=== PATIENT | male | born 1985 | race Caucasian/White ===

== ENCOUNTER 2020-12-07 03:46 | Emergency (ER) | payer OTHER, SELFPAY ==
[2020-12-07 03:47] VITALS: BP 171/108; PULSE 99; RESP 18; TEMP 36.6; O2SAT 99; BMI 36.4
--- NOTE | 2020-12-07 04:14 | CT_ITS ---
STUDY: CT ABDOMEN AND PELVIS WITH CONTRAST REASON FOR EXAM: Male, 35 years old. abdominal pain -- IV PO Contrast RADIATION DOSAGE (If Supplied By Facility): CTDIvol = ( 18.61 ) mGy, DLP = ( 1437.56 ) mGycm TECHNIQUE: Transaxial images were obtained from the dome of the diaphragm to the symphysis pubis with oral contrast. Oral and amp; IV Gastrografin and amp; 100mL Isovue-300 was administered. Sagittal and coronal images were reconstructed. Individualized dose optimization techniques were used for this CT. COMPARISON: None. FINDINGS: The visualized lung bases are unremarkable. The visualized portions of the heart are within normal limits. Normal liver. Normal gallbladder and extrahepatic biliary system. Normal spleen. Normal pancreas. Normal bilateral adrenal glands. There is a tiny 3 mm calculus at the right ureterovesicular junction with mild upstream hydroureter. No hydronephrosis. There is several subcentimeter nonobstructive left renal calculi. Normal visualized stomach. Normal small intestine. Normal colon. The appendix is visualized and appears normal. Oral contrast has reached the terminal ileum. Normal abdominal aorta. Normal inferior vena cava. Normal retroperitoneum. Normal urinary bladder. Normal abdominal wall. There is degenerative disc changes at L4-L5. CT/Abdomen/Pelvis WITH Contrast IMPRESSION: 3 mm calculus at the right ureterovesicular junction with mild upstream hydroureter. Electronically Signed: Saran Hunter MD at 7:17 EDT Tel , Service support ,
--- NOTE | 2020-12-07 04:20 | ED.VIS.GEN ---
History of Present Illness Chief Complaint: Abd Pain Informant: Patient Narrative: 35-year-old male presenting to the emergency department with approximately 2 hours of abdominal pain. He states that he was sleeping at about 0200 hrs. he woke with pain in the right side of his abdomen. States he feels it slightly into his flank. He has never had this problem before. He states that it started to subside on the way to the emergency department but it is still present. No nausea vomiting. No history of gallstones. Has never had abdominal surgery. No history of kidney stones. He states that earlier in the night he felt fine. He ate casserole for dinner without any issues. Past Medical History - Allergies and Home Meds Allergies/Adverse Reactions: Allergies No Known Allergies Allergy (Verified 12/07/20 04:19) Primary Care Physician: NOT,DEFINED [NON-STAFF] - Past Medical History: None Surgical History: no surgical history Smoking Status: Never smoker Drugs: None Review of Systems General: Denies: Chills, Fever, Sweats Eyes: Denies: Visual changes - bilaterally, Diplopia ENT: Denies: Rhinorrhea, Sore throat Cardiovascular: Denies: Chest pain, Palpitations Respiratory: Denies: Dyspnea, Cough, Dyspnea on exertion Gastrointestinal: Reports: Abdominal pain. Denies: Nausea, Vomiting, Diarrhea, Melena, Hematochezia Genitourinary: Denies: Dysuria, Hematuria, Frequency Musculoskeletal: Denies: Back pain, Extremity Pain Skin: Denies: Rash, Wounds Neurological: Denies: Headache, Weakness, Numbness Physical Exam Vital Signs/Narrative: Vital Signs Temp Pulse Resp BP Pulse Ox 12/07/20 03:47 97.8 F 99 18 171/108 H 99 Inital Vital Signs reviewed: Yes General: Well nourished, Well developed, No Acute Distress Head: Normocephalic, Atraumatic Eyes: Perrl, EOMI ENT: Moist mucous membranes, No rhinorrhea Neck: Supple, Nontender Cardiovascular: Regular rate, Regular rhythm, No murmurs Respiratory: No distress, CTA bilaterally, Chest nontender Abdomen: Soft, Nondistended, Normal bowel sounds, Tender - Tenderness to palpation in the right middle quadrant. Negative for: Guarding Back: Nontender, Normal Inspection Extremities: Nontender, No edema Skin: Normal color, No rash Neurological: Alert, Oriented x3, Cranial nerves II-XII grossly intact, Normal Strength, Normal Sensation Psychological: Normal affect, Normal Mood Diagnostic/Tx/Re-eval Clinical Impression(s) from Imaging Studies Abdomen/Pelvis CT 12/07/20 04:14 IMPRESSION: 3 mm calculus at the right ureterovesicular junction with mild upstream hydroureter. Electronically Signed: Saran Hunter MD at 7:17 EDT Tel , Service support , Laboratory Last Values WBC 10.3 K/mm3 (4.4-11.0) 12/07/20 03:50 RBC 5.30 M/mm3 (4.6-6.2) 12/07/20 03:50 Hgb 16.4 g/dL (13.0-16.5) 12/07/20 03:50 Hct 47.3 % (40-54) 12/07/20 03:50 MCV 89.2 fL (80-94) 12/07/20 03:50 MCH 30.9 pg (27.0-32.0) 12/07/20 03:50 MCHC 34.7 g/dL (32-36) 12/07/20 03:50 RDW Std Deviation 40.4 fl (35.1-43.9) 12/07/20 03:50 RDW Coeff of Prisca 12.4 % (11.6-14.6) 12/07/20 03:50 Plt Count 361 K/mm3 (150-450) 12/07/20 03:50 MPV 9.7 fl (6.2-12.0) 12/07/20 03:50 Immature Gran % (Auto) 0.200 % (0.0-0.9) 12/07/20 03:50 Neut % (Auto) 55.9 % (47-70) 12/07/20 03:50 Lymph % (Auto) 30.5 % (19-41) 12/07/20 03:50 [place] % (Auto) 8.9 % (0-10) 12/07/20 03:50 Eos % (Auto) 3.8 % (0-5) 12/07/20 03:50 Baso % (Auto) 0.7 % (0-1) 12/07/20 03:50 Absolute Neuts (auto) 5.7 X10^3/uL (2.0-7.7) 12/07/20 03:50 Absolute Lymphs (auto) 3.14 X10^3/uL (0.83-4.51) 12/07/20 03:50 Nucleated RBC % 0 % (0-5) 12/07/20 03:50 Sodium 141 mmol/L (136-145) 12/07/20 03:50 Potassium 3.6 mmol/L (3.5-5.1) 12/07/20 03:50 Chloride 107 mmol/L (98-107) 12/07/20 03:50 Carbon Dioxide 27.0 mmol/L (21.0-32.0) 12/07/20 03:50 Anion Gap 7 (5-15) 12/07/20 03:50 BUN 17 mg/dL (7-18) 12/07/20 03:50 Creatinine 1.18 mg/dL (0.70-1.30) 12/07/20 03:50 Estim Creat Clear Calc 110.81 ml/min 12/07/20 03:50 Est GFR (MDRD) Af Amer 89 mL/min (>60) 12/07/20 03:50 Est GFR (MDRD) Non-Af 74 mL/min (>60) 12/07/20 03:50 BUN/Creatinine Ratio 14.4 RATIO (10-20) 12/07/20 03:50 Glucose 117 mg/dL (74-106) H 12/07/20 03:50 Calcium 9.0 mg/dL (8.5-10.1) 12/07/20 03:50 Total Bilirubin 0.20 mg/dL (0.20-1.00) 12/07/20 03:50 AST 19 U/L (15-37) 12/07/20 03:50 ALT 40 U/L (16-61) 12/07/20 03:50 Alkaline Phosphatase 81 U/L (45-117) 12/07/20 03:50 Total Protein 8.2 g/dL (6.4-8.2) 12/07/20 03:50 Albumin 3.8 g/dL (3.2-5.0) 12/07/20 03:50 Globulin 4.4 g/dL (2.2-4.2) H 12/07/20 03:50 Albumin/Globulin Ratio 0.9 RATIO (0.9-2.4) 12/07/20 03:50 Lipase 146 U/L (73-393) 12/07/20 03:50 Urine Color Yellow (Yellow) 12/07/20 04:00 Urine Clarity Clear (Clear) 12/07/20 04:00 Urine pH 5.0 (5.0 - 8.0) 12/07/20 04:00 Ur Specific [place] 1.025 (1.002-1.030) 12/07/20 04:00 Urine Protein 15 mg/dl (Negative) H 12/07/20 04:00 Urine Glucose (UA) Normal mg/dl (Normal) 12/07/20 04:00 Urine Ketones Negative mg/dl (Negative) 12/07/20 04:00 Urine Occult Blood 250 /ul (Negative) H 12/07/20 04:00 Urine Nitrite Negative (Negative) 12/07/20 04:00 Urine Bilirubin Negative mg/dL (Negative) 12/07/20 04:00 Urine Urobilinogen Normal mg/dl (Normal) 12/07/20 04:00 Ur Leukocyte Esterase Negative /ul (Negative) 12/07/20 04:00 Urine RBC 10-25 SEEN /hpf (0-5) 12/07/20 04:00 Urine WBC 0 SEEN /hpf (0-5) 12/07/20 04:00 Ur Squamous Epith Cells 0 SEEN /hpf (0-5) 12/07/20 04:00 Urine Bacteria 0 SEEN /hpf (None Seen) 12/07/20 04:00 Urine Mucus 0 SEEN /hpf (<or=2+) 12/07/20 04:00 - Medical Decision Making Patient's urine has some microscopic blood. White count normal creatinine normal. CT demonstrates a distal 3 mm ureteral stone. The patient's pain returned and received Toradol. At this point patient will be discharged home given urologic follow-up as well as prescriptions for Percocet and Zofran return if worsening or concerns ED Disposition - Plan for ED Patient: Disposition: Home or Assisted Living Diagnosis: Right ureteral calculus, Renal colic on right side Instructions: ED Kidney Stone w/ Colic Prescriptions: Oxycodone HCl/Acetaminophen [Percocet 5/325] 1 tablet PO Q6H PRN PRN 3 Days #12 tab PRN Reason: Pain Prescription Printed Ondansetron [Zofran Odt] 4 mg PO Q6H PRN PRN #10 tablet PRN Reason: Nausea Prescription Printed Referrals: Hugh Muse MD [STAFF PHYSICIAN] - (For urology if you wish to follow-up with them)
[2020-12-07 04:21] LABS: Bacteria 0 SEEN /hpf (None Seen); Mucous, Urine 0 SEEN /hpf (<or=2+); Squamous Epithelial Cells - UA 0 SEEN /hpf (0-5); White Blood Cells 0 SEEN /hpf (0-5)
[2020-12-07 04:22] LABS: Absolute Lymphocyte Count 3.14 X10^3/uL (0.83-4.51); Absolute Neutrophil Count 5.7 X10^3/uL (2.0-7.7); Basophil# 0.07 X10^3/uL; Basophil% 0.7 % (0-1); Eosinophil# 0.39 X10^3/uL; Eosinophils% 3.8 % (0-5); Hematocrit 47.3 % (40-54); Hemoglobin 16.4 g/dL (13.0-16.5); Lymphocyte # 3.14 X10^3/ul (4.0); Lymphocyte % 30.5 % (19-41); Mean Corp Hgb Conc 34.7 g/dL (32-36); Mean Corpuscular Hgb 30.9 pg (27.0-32.0); Mean Corpuscular Volume 89.2 fL (80-94); Mean Platelet Vol. 9.7 fl (6.2-12.0); Monocyte# 0.92 X10^3/uL; Monocyte% 8.9 % (0-10); NRBC Flagged by Analyzer 0 % (0-5); Neutrophil # 5.74 X10^3/uL (2.7-7.7); Neutrophil % 55.9 % (47-70); Platelet Count 361 K/mm3 (150-450); RBC Distribution Width CV 12.4 % (11.6-14.6); RBC Distribution Width SD 40.4 fl (35.1-43.9); White Blood Count 10.3 K/mm3 (4.4-11.0)
[2020-12-07 04:23] LABS: Color, Urine Yellow (Yellow); Glucose, Dipstick Normal (Normal); Ketone-Dipstick Negative (Negative); Leukocyte Esterase-Dipstick Negative /ul (Negative); Nitrite-Dipstick Negative (Negative); Occult Blood-Urine 250 /ul (Negative); Protein-Dipstick 15 mg/dl (Negative); Specific Gravity, Urine 1.025 (1.002-1.030); Urine Bilirubin Dipstick Negative (Negative); Urine Clarity Clear (Clear); Urine Urobilinogen Normal (Normal)
[2020-12-07 04:29] LABS: Red Blood Cells-Urine 10-25 SEEN /hpf (0-5)
[2020-12-07 04:33] LABS: ALB/GLOB Ratio 0.9 RATIO (0.9-2.4); AST(SGOT) 19 U/L (15-37); Alanine Aminotransfer ALT/SGPT 40 U/L (16-61); Albumin, Serum 3.8 g/dL (3.2-5.0); Alkaline Phosphatase 81 U/L (45-117); Anion Gap 7 (5-15); BUN 17 mg/dL (7-18); BUN/Creat Ratio 14.4 RATIO (10-20); Chloride 107 mmol/L (98-107); Creatinine, Serum 1.18 mg/dL (0.70-1.30); EST Glomerular Filtration Rate 74 mL/min (>60); Est Glom Filt Rate - Afr Amer 89 mL/min (>60); Estimated Creatinine Clearance 110.81 ml/min; Globulin 4.4 g/dL (2.2-4.2); Glucose 117 mg/dL (74-106); Lipase 146 U/L (73-393); Potassium 3.6 mmol/L (3.5-5.1); Protein, Total 8.2 g/dL (6.4-8.2); Sodium Level 141 mmol/L (136-145)
[2020-12-07] MEDS: Ketorolac 30 MG/ML Syringe IV (06:36)
[2020-12-07 06:37] VITALS: BP 170/90; PULSE 87; RESP 16; O2SAT 97
[2020-12-07 07:30] VITALS: BP 175/89; PULSE 86; RESP 18; O2SAT 96
== END 2020-12-07 07:32 | disposition home or self-care (01) ==
PROVIDERS: Emergency Provider Emergency Medicine; PCP Family Medicine
DX: N20.1 Calculus of ureter (principal)
CPT/HCPCS: 74177; 80053; 81001; 83690; 85025; 96374; 99283; Q9967; A4216

== ENCOUNTER 2021-09-20 16:43 | Outpatient (CLI) | payer OTHER, SELFPAY | END 2021-09-20 23:59 | disposition short-term general hospital (02) | PROVIDERS: PCP Family Medicine; Visit Provider Family Medicine | DX: Z20.822 Contact with and (suspected) exposure to COVID-19 (principal) | CPT/HCPCS: 87635; U0003; U0005 ==

== ENCOUNTER → 2023-06-20 | Outpatient (CLI) | payer OTHER, SELFPAY ==
[2023-06-20 13:21] LABS: Anion Gap 6 (5-15); BUN 13 mg/dL (7-18); BUN/Creat Ratio 13.6 RATIO (10-20); Calcium,Total 9.2 mg/dL (8.5-10.1); Chloride 106 mmol/L (98-107); Cholesterol 162 mg/dL (200); Creatinine, Serum 0.96 mg/dL (0.70-1.30); EST Glomerular Filtration Rate 93 mL/min (>60); Est Glom Filt Rate - Afr Amer 112 mL/min (>60); Glucose 100 mg/dL (74-106); High Density Lipoprotein 35 mg/dL; Potassium 3.7 mmol/L (3.5-5.1); Sodium Level 138 mmol/L (136-145); Triglycerides 225 mg/dL; Very Low Density Lipoprotein 45 mg/dL (5-40)
== END | disposition home or self-care (01) ==
LOC: MFPLAB 09:48
PROVIDERS: PCP Family Medicine; Visit Provider Family Medicine
DX: R73.01 Impaired fasting glucose (principal); I10 Essential (primary) hypertension
CPT/HCPCS: 36415; 80048; 80061

== ENCOUNTER → 2024-06-25 | Outpatient (CLI) | payer OTHER, SELFPAY ==
[2024-06-25 15:54] LABS: AST(SGOT) 19 U/L (15-37); Alanine Aminotransfer ALT/SGPT 37 U/L (16-61); Alkaline Phosphatase 79 U/L (45-117); Anion Gap 5 (5-15); BUN 18 mg/dL (7-18); BUN/Creat Ratio 16.5 RATIO (10-20); Calcium,Total 9.6 mg/dL (8.5-10.1); Chloride 108 mmol/L (98-107); Creatinine, Serum 1.09 mg/dL (0.70-1.30); EST Glomerular Filtration Rate 79 mL/min (>60); Est Glom Filt Rate - Afr Amer 96 mL/min (>60); Globulin 4.1 g/dL (2.2-4.2); Glucose 88 mg/dL (74-106); Potassium 4.1 mmol/L (3.5-5.1); Protein, Total 8.1 g/dL (6.4-8.2); Sodium Level 138 mmol/L (136-145)
== END | disposition home or self-care (01) ==
PROVIDERS: PCP Family Medicine; Referring Provider Family Medicine; Visit Provider Family Medicine
DX: I10 Essential (primary) hypertension (principal)
CPT/HCPCS: 36415; 80053

== ENCOUNTER 2025-01-25 11:22 | Emergency (ER) | payer OTHER, SELFPAY ==
[2025-01-25] VITALS (12 sets, daily range): BP systolic 109–183; BP diastolic 47–132; PULSE 61–96; RESP 14–18; TEMP 36.1–36.6; O2SAT 97–100; BMI 34.9
--- NOTE | 2025-01-25 11:39 | EKG12_ITS ---
Test Reason : PALPITATIONS Blood Pressure : */* mmHG Vent. Rate : 102 BPM Atrial Rate : 102 BPM P-R Int : 152 ms QRS Dur : 92 ms QT Int : 328 ms P-R-T Axes : -12 47 19 degrees QTcB Int : 427 ms Sinus tachycardia Otherwise normal ECG Confirmed by Thee Sevilla ([id number]), publication editor DANIELLE JJ ([id number]) on 01/27/2025 10:53:02 AM Referred By: JON/RAMONA Confirmed By: Thee Sevilla
--- NOTE | 2025-01-25 11:40 | RAD_ITS ---
EXAM: XR Chest, 2 Views CLINICAL INDICATION: PALPITATIONS TECHNIQUE: Frontal and lateral views of the chest. COMPARISON: No relevant prior studies available. FINDINGS: LUNGS AND PLEURAL SPACES: Unremarkable. No consolidation. No pneumothorax. HEART: Unremarkable. No cardiomegaly. MEDIASTINUM: Unremarkable. Normal mediastinal contour. BONES/JOINTS: Unremarkable. No acute fracture. RAD/Chest PA and Lateral IMPRESSION: No acute cardiopulmonary process. Reading Location: [id number]
[2025-01-25] MEDS: 0.9% Normal Saline (1000mL) 1,000 ML 999 ML IV (11:54)
[2025-01-25 12:03] LABS: Absolute Lymphocyte Count 2.01 X10^3/uL (0.83-4.51); Basophil# 0.09 X10^3/uL; Eosinophil# 0.46 X10^3/uL; Eosinophils% 4.9 % (0-5); Hematocrit 47.8 % (40-54); Hemoglobin 16.5 g/dL (13.0-16.5); Lymphocyte # 2.01 X10^3/ul (0.83-4.51); Lymphocyte % 21.6 % (19-41); Mean Corp Hgb Conc 34.5 g/dL (32-36); Mean Corpuscular Volume 86.9 fL (80-94); Mean Platelet Vol. 9.6 fl (6.2-12.0); Monocyte# 0.68 X10^3/uL; Monocyte% 7.3 % (0-10); NRBC Flagged by Analyzer 0 % (0-5); Neutrophil # 6.03 X10^3/uL (2.7-7.7); Neutrophil % 64.8 % (47-70); Platelet Count 323 K/mm3 (150-450); RBC Distribution Width CV 12.6 % (11.6-14.6); RBC Distribution Width SD 39.8 fl (35.1-43.9); White Blood Count 9.3 K/mm3 (4.4-11.0)
--- NOTE | 2025-01-25 12:04 | EDS_ITS ---
HPI History of Present Illness Chief Complaint: Palpitations Narrative Narrative: Chief complaint and HPI: Palpitations. 39-year-old male with past medical history of HTN presents for evaluation of palpitations. Patient states that he drinks energy drinks every morning. He states while he was drinking this energy drink he developed palpitations. States he did not finish the drink. Endorses a quick episode of lightheadedness with the palpitations that is since resolved. Denies any fever, chills, shortness of breath, chest pain abdominal pain, nausea, vomiting, diarrhea. Denies any bilateral lower extremity pain or swelling. Denies any recent travel or surgery. Review of systems: See HPI Medications: As listed on the chart Allergies: As listed on the chart PFSH: Per chart Vital signs: As listed on the chart. Reviewed. Physical exam: Gen: A&O x3, NAD Head: Normocephalic, atraumatic Eyes: No sclera icterus, conjunctiva clear ENT: Moist mucous membranes Neck: Trachea midline, No JVD CV: Tachycardic, regular rhythm, no murmurs, no peripheral edema Resp: Lungs CTA BL, no w/r/c GI: Abd soft, non-distended, non-tender, no r/r/g Musc: Full ROM, no deformity Skin: Warm, dry Neuro: Alert, oriented, grossly intact, sensation intact Psych: Cooperative, appropriate mood and affect [facility] Medical History (Updated 01/25/25 @ 14:[address] Jermaine Rodney, DO) COVID-19 Dislocated shoulder Hx of renal calculi HTN (hypertension) Home Medications ?Medication ?Instructions ?Recorded ?Last Taken ?Type loratadine 10 mg tablet (Claritin) 10 mg PO DAILY 08/2901/25/25 History lisinopril 20 mg tablet 20 mg PO DAILY 01/25/2512/28 History Allergy/AdvReac Type Severity Reaction Status Date / Time Penicillins Allergy unknown Verified 01/25/25 11:23 Family History (Updated 09/24/21 @ 10:17 by Cori Rosen) Father CVA (cerebral vascular accident) Social History Smoking Status: Never smoker EXAM Physical Exam Const Vital Signs: 01/25/25 11:23 01/25/25 12:00 01/25/25 12:15 Temperature 97.0 F L Temperature Source Oral Pulse Rate 77 90 Respiratory Rate 16 16 Blood Pressure 183/132 H 126/96 H 116/104 H Blood Pressure Mean 149 107 110 Pulse Ox 99 97 Oxygen Delivery Method Room Air 01/25/25 12:22 01/25/25 12:30 01/25/25 12:45 Temperature Temperature Source Pulse Rate 81 87 79 Respiratory Rate 18 14 15 Blood Pressure 116/80 109/73 116/80 Blood Pressure Mean 92 82 90 Pulse Ox 99 97 98 Oxygen Delivery Method Room Air 01/25/25 13:00 01/25/25 13:15 01/25/25 13:30 Temperature Temperature Source Pulse Rate 82 96 86 Respiratory Rate 17 15 17 Blood Pressure 120/73 111/47 L 112/82 H Blood Pressure Mean 86 58 92 Pulse Ox 97 99 100 Oxygen Delivery Method 01/25/25 13:45 01/25/25 14:00 Temperature Temperature Source Pulse Rate 79 Respiratory Rate 17 Blood Pressure 119/69 Blood Pressure Mean 85 Pulse Ox 99 Oxygen Delivery Method MDM MDM MDM Narrative Medical decision making narrative: 39-year-old male with past medical history of HTN presents for evaluation of palpitations. Differential diagnosis includes but is not limited to arrhythmia, anemia, electrolyte abnormality, thyroid disease, suspect less likely ACS or PE. On presentation patient is in sinus tachycardia however on the monitor he occasionally throws PACs. This is not seen on EKG. NS bolus ordered. Palpitations workup ordered. EKG reviewed see below. CBC without leukocytosis or anemia. BMP without significant electrolyte abnormality or NIKOLE. Does show mild dehydration. D-dimer unremarkable. Magnesium mildly elevated at 2.3. BMP unremarkable. TSH unremarkable. Troponin unremarkable x 2. Low risk for ACS per heart score as well as patient denied true chest pain. On reevaluation, patient is asymptomatic. He is no longer throwing PACs on the monitor. Symptoms may be secondary to intermittent PACs versus mild dehydration and energy drink use. Recommend keeping up with fluid intake. Recommend refraining from energy drinks. Follow-up with PCP. Return precautions explained. Patient understands plan. Patient stable to discharge home EKG: Interpreted by me/EM physician: EKG shows sinus tachycardia without any acute ischemic changes. Heart rate 102 Diagnostic: Interpreted by me/EM physician: Chest x-ray without pneumonia, effusion, cardiomegaly, pneumothorax. Radiology in agreement. Impression: 1. Palpitations, resolved 2. Mild dehydration Lab Data Labs: Laboratory Results - last 24 hr 01/25/25 01/25/25 11:50 13:55 WBC 9.3 RBC 5.50 Hgb 16.5 Hct 47.8 MCV 86.9 MCH 30.0 MCHC 34.5 RDW Std Deviation 39.8 RDW Coeff of Prisca 12.6 Plt Count 323 MPV 9.6 Immature Gran % (Auto) 0.400 Neut % (Auto) 64.8 Lymph % (Auto) 21.6 [place] % (Auto) 7.3 Eos % (Auto) 4.9 Baso % (Auto) 1.0 Absolute Neuts (auto) 6.0 Absolute Lymphs (auto) 2.01 Nucleated RBC % 0 D-Dimer Quant (PE/DVT) 0.38 Sodium 138 Potassium 3.7 Chloride 104 Carbon Dioxide 20.1 L Anion Gap 14 BUN 31 H Creatinine 1.16 Estim Creat Clear Calc 129.95 Est GFR (MDRD) Non-Af 81 BUN/Creatinine Ratio 26.7 H Glucose 107 H Calcium 10.0 Magnesium 2.3 H Troponin T High Sens 10 Troponin T Hi Sens 2 Hr 6 NT pro BNP II < 36 TSH 1.720 Radiography Diagnostic Testing: Clinical Impression(s) from Imaging Studies Chest X-Ray 01/25/25 11:40 IMPRESSION: No acute cardiopulmonary process. Reading Location: [facility] Discharge Plan Triage Chief Complaint: Palpitations ED Provider: Jermaine Rodney Dx/Rx/DC Orders Clinical Impression: Palpitations Instructions: ED Palpitations Prescriptions: No Action loratadine [Claritin] 10 mg tablet 10 mg PO DAILY lisinopril 20 mg tablet 20 mg PO DAILY Primary Care Provider: Saran Allen Referrals: Saran Allen MD [Primary Care Provider] - 3-5 Days Activity Restrictions/Additional Instructions: Return back to the ED symptoms change or worsen. Follow-up with your primary care physician. Recommend drinking more water. Recommend staying away from energy drinks. Print Language: Norwegian Disposition Disposition: Home, Self Care
[2025-01-25 12:09] LABS: D-Dimer Quantitative (DVT/PE) 0.38 FEU/ug/m (0.27-0.49)
[2025-01-25 12:22] LABS: Anion Gap 14 (5-15); BUN 31 mg/dL (4-19); BUN/Creat Ratio 26.7 RATIO (10-20); Carbon Dioxide 20.1 mmol/L (21.0-32.0); Chloride 104 mmol/L (98-108); Creatinine, Serum 1.16 mg/dL (0.70-1.20); EST Glomerular Filtration Rate 81 (>60); Estimated Creatinine Clearance 129.95 ml/min (50-250); Glucose 107 mg/dL (70-99); Potassium 3.7 mmol/L (3.3-5.1); Sodium Level 138 mmol/L (133-145)
[2025-01-25 13:03] LABS: Pro- Brain NATRIURETIC PEPTIDE < 36 pg/mL (<=450)
[2025-01-25 13:14] LABS: Magnesium 2.3 mg/dL (1.5-2.2); Troponin T High Sensitivity 10 ng/L (<=22)
[2025-01-25 14:33] LABS: Troponin T High Sens 2 HR 6 ng/L (<=22)
== END 2025-01-25 14:48 | disposition home or self-care (01) ==
PROVIDERS: Emergency Provider Surgery; PCP Family Medicine; Visit Provider Surgery
DX: R00.2 Palpitations (principal); I10 Essential (primary) hypertension; Z86.16 Personal history of COVID-19; E86.0 Dehydration; Z87.442 Personal history of urinary calculi
CPT/HCPCS: 71046; 80048; 83735; 83880; 84443; 84484; 85025; 85379; 93005; 96360; 96361; 99284; A4216